=== PATIENT | female | born 1995 | race Caucasian/White ===

== ENCOUNTER 2022-02-25 08:03 | Outpatient (REF) | payer BC, SELFPAY ==
--- NOTE | ~2022-02-25 | MR_ITS ---
EXAMINATION: MR BRAIN WITHOUT CONTRAST CLINICAL INFORMATION: Migraine without aura, intractable, without status migrainosus. COMPARISON: None available. TECHNIQUE: Multiplanar, multisequence imaging of the brain was performed without intravenous contrast. FINDINGS: The ventricles and sulci have normal size/configuration.?There is no abnormal fluid collection or evidence of intracranial hemorrhage. The signal and morphology of the brain parenchyma are normal. There is no mass effect, midline shift, or basal cistern effacement. The midline structures are normal. There is a fully formed corpus callosum. The cerebellar tonsils terminate above the foramen magnum. The major intracranial flow voids are present. There is minimal mucosal thickening in the paranasal sinuses without fluid levels. The middle ear cavities and mastoid air cells are clear. The orbital contents are unremarkable. MR/MR head/brain wo con IMPRESSION: No compelling imaging explanation for headaches. Specifically, no intracranial mass, hydrocephalus, tonsillar ectopia, or significant paranasal sinus disease.
--- NOTE | 2022-02-25 08:06 | EEG_ITS ---
This is a 16-channel EEG with an EKG lead. The patient is reported awake during the tracing. Background EEG rhythm is 12 to 14 hertz alpha posteriorly and lower amplitude fast anteriorly. Photic stimulation does not produce any significant abnormality. Hyperventilation is not performed. No sharp wave spikes or paroxysmal tendencies noted. Cardiac lead does not reveal any significant abnormality. IMPRESSION: Unremarkable EEG. MD SAMMI Durant/ENZO / [id number]
== END 2022-02-25 08:04 | disposition home or self-care (01) ==
LOC: HO.NEURO 08:03
PROVIDERS: Visit Provider Psychiatry & Neurology Neurology
DX: G43.119 Migraine with aura, intractable, without status migrainosus (principal); R25.9 Unspecified abnormal involuntary movements; R42 Dizziness and giddiness
CPT/HCPCS: 70551; 95816